=== PATIENT | female | born 1975 | race Caucasian/White ===

== ENCOUNTER 2016-09-22 10:11 | Outpatient (CLI) | payer MEDICAID ==
--- NOTE | 2016-09-22 13:42 | XRAY Report ---
TWO VIEW CHEST: 09/22/2016 CLINICAL INDICATION: Bronchitis. FINDINGS: Frontal and lateral views of the chest demonstrate a normal cardiac silhouette. The lungs are clear. No effusion or pneumothorax is present. IMPRESSION: NORMAL CHEST. JOB #: [id number] EXT JOB #:[id number]
== END 2016-09-22 10:12 | disposition home or self-care (01) ==
LOC: DI.N 10:11
PROVIDERS: ATTEND Physician Assistant
DX: J40 Bronchitis, not specified as acute or chronic (principal)
CPT/HCPCS: 71020

== ENCOUNTER 2018-05-17 12:03 | Emergency (ER) | payer SELFPAY ==
[2018-05-17 12:11] VITALS: BP 139/77
[2018-05-17] MEDS ORDERED: IPRATROPIUM/ALBUTEROL 3 ML NEB INH STA (12:30)
[2018-05-17] MEDS ORDERED: KETOROLAC 60 MG/2 ML VIAL IM STA (12:30)
--- NOTE | 2018-05-17 12:33 | ED Physician Documentation ---
History of Present Illness - Stated complaint Stated Complaint: BACK PX,SOA,NAUSA - Chief complaint Chief Complaint: Resp - History obtained from History obtained from: Patient, Family - History of Present Illness Timing: How many days ago (3) Pain level max: 9 Pain level now: 8 - Additonal information Additional information: 43-year-old female presents to the emergency department complaining of left- sided midthoracic back pain. States it is cramping and squeezing. States it is worse with movement and better with rest. Aleve helped slightly. Started after she was painting a few days ago. She is states she is also had a mild cough as well as a temperature of 101 degrees last night. No rhinorrhea or congestion. No recent surgery, travel , Immobilization. She does smoke. Review of Systems Constitutional: reports: Fever, Chills Ears: denies: Ear pain Nose: denies: Rhinorrhea / runny nose, Congestion Respiratory: reports: Cough GI: denies: Abdominal Pain, Vomiting, Diarrhea : denies: Dysuria, Frequency, Hesitancy, Hematuria Skin: denies: Rash Musculoskeletal: denies: Neck pain Neurologic: denies: Focal weakness, Numbness, Headache PD PAST MEDICAL HISTORY - Past Medical History Past Medical History: No - Past Surgical History Past Surgical History: No - Present Medications Home Medications: Ambulatory Orders Medication Instructions Recorded Confirmed Albuterol Sulf [Ventolin Hfa 1 - 2 puffs INH Q4HR PRN #1 inhaler 05/17/18 Inhaler] Meloxicam [Mobic] 15 mg PO DAILY PRN #20 tablet 05/17/18 - Allergies Allergies/Adverse Reactions: Allergies Allergy/AdvReac Type Severity Reaction Status Date / Time acetaminophen [From Percocet] AdvReac Rash Verified 05/17/18 12:11 oxycodone [From Percocet] AdvReac Rash Verified 05/17/18 12:11 - Living Situation Living Situation: reports: With family Living Arrangement: reports: At home - Social History Does the pt smoke?: Yes Does the pt have substance abuse?: No - Family History Family history: reports: Non contributory PD ED PE NORMAL - Vitals Vital signs reviewed: Yes - General General: Alert and oriented X 3, No acute distress, Well developed/nourished - HEENT HEENT: PERRL - Neck Neck: Supple, no meningeal sign - Cardiac Cardiac: RRR - Respiratory Respiratory: No respiratory distress, Clear bilaterally, Other (Diminished breath sounds bilaterally, wheezing bilaterally) - Abdomen Abdomen: Soft, Non tender, Non distended - Back Back: No spinal TTP (No midline tenderness to palpation or percussion. Left- sided paraspinal spasm low Thoracic.) - Derm Derm: Warm and dry - Extremities Extremities: No edema, No calf tenderness / cord - Neuro Neuro: Alert and oriented X 3 - Psych Psych: Normal mood, Normal affect Results - Vitals Vitals: Vital Signs - 24 hr 05/17/18 05/17/18 12:08 12:58 Temperature 36.4 C L Heart Rate 105 H 90 Respiratory 20 16 Rate Blood Pressure 139/77 H O2 Saturation 99 Oxygen O2 Source Room air - Rads (name of study) cxr Radiology: Prelim report reviewed, EMP read contemporaneously, See rad report (No acute disease) PD MEDICAL DECISION MAKING - ED course Complexity details: reviewed results, re-evaluated patient, considered differential, d/w patient, d/w family ED course: 43-year-old female presents to the emergency department with cough decreased breath sounds bilaterally and left mid thoracic muscle spasm, pain reproduced with palpation. No evidence of pulmonary embolus. Feels better after nebulizer treatment and Toradol. Pain is also worse with movement. Will prescribe an inhaler for home as well as meloxicam. We will have her follow-up with her doctor for further care. Patient counseled regarding signs and symptoms for which I believe and urgent re-evaluation would be necessary. Patient with good understanding of and agreement to plan and is comfortable going home at this time This document was made in part using voice recognition software. While efforts are made to proofread this document, sound alike and grammatical errors may occur. Departure - Departure Disposition: Home, Self Care Clinical Impression: Viral URI with cough Condition: Good Instructions: ED Viral Syndrome Follow-Up: your,doctor in 1 week [Other] Prescriptions: Albuterol Sulf [Ventolin Hfa Inhaler] 1 - 2 puffs INH Q4HR PRN #1 inhaler PRN Reason: Shortness Of Air/Wheezing Meloxicam [Mobic] 15 mg PO DAILY PRN #20 tablet PRN Reason: pain Comments: Use the medications as prescribed. Return if you worsen. Discharge Date/Time: 05/17/18 14:14
--- NOTE | 2018-05-17 13:07 | XRAY Report ---
Reason: cough Procedure Date: 05/17/2018 Accession Number: [id number] / [id number] Procedure: XR - Chest 2 View X-Ray CPT Code: 76369 FULL RESULT: EXAM: CHEST RADIOGRAPHY EXAM DATE: 05/17/2018 12:56 PM. CLINICAL HISTORY: Cough. COMPARISON: Chest 2 view PA/LAT 09/22/2016 10:45 AM. TECHNIQUE: 2 views. FINDINGS: Lungs/Pleura: No focal opacities evident. No pleural effusion. No pneumothorax. Normal volumes. Mediastinum: Heart and mediastinal contours are unremarkable. Other: None. IMPRESSION: Normal 2-view chest radiography. [facility]
[2018-05-17] MEDS ORDERED: DEXAMETHASONE 10 MG/ML VIAL PO STA (13:59)
[2018-05-17] MEDS ORDERED: CHERRY SYRUP 10 ML UDC PO ONE (14:07)
== END 2018-05-17 14:14 | disposition home or self-care (01) ==
LOC: ED 12:03
DX: J06.9 Acute upper respiratory infection, unspecified (principal); B97.89 Other viral agents as the cause of diseases classified elsewhere
CPT/HCPCS: 71046; 94640; 96372; 99283; A9270